=== PATIENT | male | born 2000 | race Caucasian/White ===

== ENCOUNTER 2021-09-07 21:34 | Outpatient (CLI) | payer BC, SELFPAY | END 2021-09-07 21:35 | disposition home or self-care (01) | PROVIDERS: PCP Pediatrics; Visit Provider Family Medicine | DX: R55 Syncope and collapse (principal) ==

== ENCOUNTER 2021-09-07 22:11 | Emergency (ER) | payer BC, SELFPAY ==
[2021-09-07 22:30] VITALS: BP 131/72; PULSE 94; RESP 16; TEMP 38.5; O2SAT 97; BMI 20.3
[2021-09-07 23:09] VITALS: BP 125/70; PULSE 84; RESP 16; O2SAT 99
[2021-09-07] MEDS: IBUPROFEN 200 MG TABLET 800 MG PO (23:10)
[2021-09-07 23:11] VITALS: BP 115/56; PULSE 96; RESP 16; O2SAT 97
[2021-09-07 23:12] VITALS: BP 96/53; PULSE 110; RESP 16; O2SAT 99
[2021-09-07 23:20] VITALS: BP 127/77; PULSE 85; RESP 16; O2SAT 97
[2021-09-07 23:59] VITALS: TEMP 37.1
--- NOTE | 2021-09-08 | ED.NURSE ---
Pt brought to ER by step mom who is in lobby with another child. Pt and step mom eager for discharge instruction. Pt offered ivf after orthostats and declines, states he will be careful to drink more to stay hydrated. Pt is familiar with own syncopal episodes.
[2021-09-08 00:46] LABS: SARS PCR* Negative SARS-CoV-2 (Negative)
--- NOTE | 2021-09-08 00:58 | ED.NURSE ---
Pt only wanted to be called if covid positive, result is negative.
--- NOTE | 2021-09-08 08:21 | ED_ITS ---
HPI - Syncope General Chief Complaint: Unspecified Complaint, Adult Stated Complaint: Snycope Time Seen by Provider: 09/07/21 22:50 Source: patient, RN notes reviewed and old records reviewed Mode of arrival: ambulatory Limitations: no limitations History of Present Illness HPI narrative: 21-year-old young man presenting ambulatory to the emergency department after a syncopal event. He said he has been feeling off over the last couple of days little feverish and mild nausea. Went to try to eat supper this evening just managed 3 bites. Got up and ?went down?. Fell on his face. He says he understands why EMS was called. Said his mom got nervous. Does reports a history of what does sound like vasovagal syncopal events. He notes medical stuff bothers him too; gets lightheaded. He does not have any neck or back pain. No sense of palpitations. He notes himself to be quite a biker with no exercise intolerance. He did have COVID last year but this feels different. He is vaccinated for COVID. Still feels a little nauseated. Unknown exposures. No shortness of breath. No cough or cold symptoms. No noted dysuria. No abdominal pain. Took Tylenol over 10 hours ago. No familial sudden cardiac reported. Last seen in this department for hip pointer/hip bruise. Related Data Home Medications Medication Instructions Recorded Confirmed Tylenol 09/07/21 Allergies Allergy/AdvReac Type Severity Reaction Status Date / Time No Known Drug Allergies Allergy Verified 09/07/21 22:35 Review of Systems Status of ROS: Reports: 10 or more systems reviewed and unremarkable except as noted in History and below [facility] Social History Smoking Status: Never smoker How often do you have a drink containing alcohol: never AUDIT-C Alcohol total score: 0 Non-prescribed substance use: denies use service: No Exam Narrative: Exam Narrative: General: pleasant, nad, breathing easily. CN 2 - 12 intact. Mentating normally. Speaking easily. GCS of 15 Skin: Rather warm consistent with fever and dry and well-perfused peripherally without apparent rash. Normal turgor. Face is a little flushed. HEENT: head looks atraumatic other than mild swelling of the bridge of his nose. It is symmetrical. There is a 0.5 cm scab horizontally on the bridge of the nose. Herecanals are clear of fluid and TMs without evidence of inflamation or trauma. Eyes with mild sclera injection, PERRLA. Nose is relatively symmetrical and without bleeding. Oropharynx is moist, symmetrical, without significant erythema and dentition is intact. Neck and Back: Neck is supple, without midline tenderness and with mild anterior cervical lymphadenopathy. No posterior cervical lymphadenopathy lymphadenopathy. Back without midline tenderness. Cardiac: Elevated rate and regular rhythm no MRG Lungs/Chest: clear without stridor, with equal expansion/excursion, No pain to palpation. Abdomen/Pelvis: Soft flat and non-tender with normoactive bowel sounds. Musculoskeletal/Extremities: Moving all extremities without difficulty, fluidly. pain to palpation. No extremity edema. Well perfused. Const: Vital Signs, click to edit/add: Vital Signs - 24 hr 09/07/21 22:30 09/07/21 23:09 09/07/21 23:11 Temperature 101.3 F H Pulse Rate [Left P ulse Oximeter] 94 84 96 Pulse Rate [orthos tatic lying] 84 Pulse Rate [orthos tatic sitting] 96 Pulse Rate [orthos tatic standing] Respiratory Rate 16 16 16 Blood Pressure [Ri ght Upper Arm] 131/72 125/70 115/56 L Blood Pressure [or thostatic lying] 125/70 Blood Pressure [or thostatic sitting] 115/56 L Blood Pressure [or thostatic standing ] Pulse Oximetry 97 99 97 09/07/21 23:12 09/07/21 23:20 09/07/21 23:59 Temperature 98.8 F Pulse Rate [Left P ulse Oximeter] 110 H 85 Pulse Rate [orthos tatic lying] Pulse Rate [orthos tatic sitting] Pulse Rate [orthos tatic standing] 110 H Respiratory Rate 16 16 Blood Pressure [Ri ght Upper Arm] 96/53 L 127/77 Blood Pressure [or thostatic lying] Blood Pressure [or thostatic sitting] Blood Pressure [or thostatic standing ] 96/53 L Pulse Oximetry 99 97 Documenting provider has reviewed patient's vital signs: yes Course Course Hospital Course: Ordered for ibuprofen. I discussed laboratory analysis and IV fluid resuscitation. Also some degree of cardiovascular evaluation. He thinks he has had normal chest x-ray before. So than EKG. Raymon was hesitating with regard to workup. Noting that he felt all right and felt that he had been focusing on hydrating. I proposed orthostatics as determinant. We did these, they were positive. Was afebrile, less flushed after ibuprofen. Raymon still preferred to hydrate on own. Family in lobby wondering when they can leave. We will call with COVID results Vital Signs Vital signs: Initial Vital Signs Temperature 101.3 F H 09/07/21 22:30 Temperature Source Temporal Artery Scan 09/07/21 22:30 Pulse Rate 94 09/07/21 22:30 Respiratory Rate 16 09/07/21 22:30 Blood Pressure 131/72 09/07/21 22:30 Blood Pressure Mean 91 09/07/21 22:30 Blood Pressure Position Supine 09/07/21 22:30 Pulse Oximetry 97 09/07/21 22:30 Oxygen Delivery Method 09/07/21 22:30 Vital Signs Temperature 101.3 F H 09/07/21 22:30 Pulse Rate 94 09/07/21 22:30 Respiratory Rate 16 09/07/21 22:30 Blood Pressure 131/72 09/07/21 22:30 Pulse Oximetry 97 09/07/21 22:30 Temperature 98.8 F 09/07/21 23:59 Pulse Rate 85 09/07/21 23:20 Respiratory Rate 16 09/07/21 23:20 Blood Pressure 127/77 09/07/21 23:20 Pulse Oximetry 97 09/07/21 23:20 MDM - Syncope MDM Narrative Medical decision making narrative: Clearly orthostatically positive in the setting of a febrile illness in someone also prone to vasovagal syncope. I do think CT head imaging actually would be low yield here. Too early for Monospot. Further throat does not look consistent with mono. Unspecified febrile illness and community at this time. EKG reviewed by me looks not atypical for young active man. Large R-wave. Though prominent atrium. Normal sinus. No delta wave. I do not have prior for comparison Medical Records Attestation: I reviewed the patient's medical records. Lab Data Attestation: I reviewed the patient's lab results. Labs: Lab Results 09/07/21 Range/Units 23:07 SARS-CoV-2 (PCR) Negative SARS-CoV-2 (Negative) Discharge Plan Discharge Clinical Impression: Syncope, vasovagal, Closed head injury, Acute febrile illness Patient Disposition: Home w/ Parent or Adult Condition: Stable Additional Instructions: Important to stay hydrated. Can take up to 800 mg of ibuprofen or up to 1000 mg of acetaminophen per dose. Take care in transitions. We will call you if your COVID test is positive. You do not seem to be concussed at this time. Sometimes concussions show up later. Might be indicated by smoldering headache or nausea. Nausea or headache on exertion would be an indication to back off for a week of that level of activity and then reassessed. Other signs might be light sensitivity, mood lability trouble with concentration. If not improved in a week would follow up for re-evaluation of concussion. Prescriptions: No Action Tylenol 0RF Follow Up/Referrals: Angel Chicas MD [Referring] - Stand Alone Forms: [employer] Info Instructions
== END 2021-09-08 | disposition home or self-care (01) ==
LOC: ED 23:43
PROVIDERS: Emergency Provider Family Medicine; PCP Pediatrics
DX: I95.1 Orthostatic hypotension (principal)
CPT/HCPCS: 87635; 93005; 99283; 99284; A9270